=== PATIENT | male | born 1950 | race Caucasian/White ===

== ENCOUNTER → 2019-09-27 | Outpatient (CLI) | payer BC ==
--- NOTE | 2019-09-27 15:50 | Diagnostic Imaging Report ---
PROCEDURE: US right lower extremity venous. TECHNIQUE: Multiple real-time grayscale images were obtained over the right lower extremity in various projections. Additional spectral analysis and color Doppler duplex images were also obtained. INDICATION: Right lower extremity pain and swelling. FINDINGS: There is no evidence of right lower extremity DVT. Right lower extremity deep venous system shows normal compressibility with normal response to augmentation and Valsalva. No fluid collection is seen. IMPRESSION: No evidence of right lower extremity DVT. Dictated by: Dictated on workstation # [id number]
== END ==
LOC: RAD 14:43
PROVIDERS: ATTEND Nurse Practitioner Family
DX: R60.0 Localized edema (principal)

== ENCOUNTER 2019-10-03 09:55 | Outpatient (CLI) | payer BC ==
[~2019-10-03] VITALS: Ht 180.3 cm; Wt 73.6 kg
== END 2019-10-03 13:37 | disposition home or self-care (01) ==
LOC: PREOP 09:55
PROVIDERS: ATTEND Surgery
DX: Z01.818 Encounter for other preprocedural examination (principal)

== ENCOUNTER 2019-10-04 13:24 | Day surgery (SDC) | payer BC ==
--- NOTE | 2019-10-03 10:35 | HISTORY AND PHYSICAL ---
DATE OF SERVICE: PROCEDURE DATE: 10/04/2019. ATTENDING PHYSICIAN: Dr. Carmona. HISTORY OF PRESENT ILLNESS: The patient is a 69-year-old male who was referred over to us in need of a screening colonoscopy. The patient reports he has never had one done before at this point in his life. He denies any blood in the stool as well as no family history of colon cancer. He denies any diarrhea or constipation or any abdominal pain. PAST MEDICAL HISTORY: None. PAST SURGICAL HISTORY: Left arm ORIF in 1979, repair of dislocated shoulder in 1979. ALLERGIES: No known drug allergies. MEDICATIONS: None. SOCIAL HISTORY: Positive for smoke 1 pack per day for 30 years. Social alcohol. FAMILY HISTORY: Mother had diabetes and abdominal aortic aneurysm. Sister, ovarian cancer. VITAL SIGNS: Blood pressure is 140/70. Current weight is 164.2, 5 feet 11 inches. REVIEW OF SYSTEMS: Well-nourished male in no acute distress. He is not experiencing any shortness of breath or difficulty breathing. No chest pain, palpitations or diaphoresis. No nausea, vomiting or abdominal pain. No diarrhea or constipation. No red blood per rectum. No dark tarry stools. No fever or chills. No recent inadvertent weight loss. All other review of systems negative. PHYSICAL EXAMINATION: CHEST: Scattered rales, rhonchi bilaterally. HEART: Regular, no murmurs. EXTREMITIES: No lower extremity edema. Negative Homans sign. HEENT: No scleral icterus. No cervical lymphadenopathy. ABDOMEN: Soft, nontender, nondistended. SKIN: Warm, dry and pink. NEUROLOGIC: Awake, alert and oriented x3. ASSESSMENT AND PLAN: A 69-year-old male who is in need of a screening colonoscopy. The risks and benefits of the procedure as well as the procedure and wound care instructions were explained to the patient. The patient verbalized understanding of instructions and agrees to proceed as planned. At this time, we will proceed with scheduling the patient for a screening colonoscopy. Job ID: [id number] DocumentID: [id number] Dictated Date: 10/03/2019 09:15:30 Animal Eviscerator Date: 10/03/2019 10:34:48 Dictated By: BILLIE RIOS APRN
[2019-10-04] VITALS (14 sets, daily range): BP systolic 60–160; BP diastolic 63–94
[~2019-10-04] VITALS: Ht 180.3 cm; Wt 73.6 kg
[2019-10-04] MEDS ORDERED: NS IV 500 ML 500 ML ONE (13:28)
[2019-10-04] MEDS ORDERED: NS IV 500 ML 500 ML IV PRN (13:31)
[2019-10-04] MEDS ORDERED: fentaNYL INJECTION 100 MCG/2 ML AMP IVP ONE (13:45)
[2019-10-04] MEDS ORDERED: LIDOCAINE JELLY 2% 6 ML SYRINGE MM PRN (13:45)
[2019-10-04] MEDS ORDERED: fentaNYL INJECTION 100 MCG/2 ML AMP ONE ×2 (15:36)
[2019-10-04] MEDS ORDERED: LIDOCAINE JELLY 2% 6 ML SYRINGE ONE (15:36)
[2019-10-04] MEDS ORDERED: MIDAZOLAM 5 MG/5 ML (VERSED) VIAL ONE ×2 (15:37)
--- NOTE | 2019-10-04 15:46 | Conscious Sedation/ASA ---
Conscious Sedation Pre-Proced Time 15:30 ASA Score 2 For ASA 3 and 4: Consider anesthesia and medical clearance. Also, for patients with a history of failed moderate sedation consider anesthesia. Airway Lungs Heart ASA score ASA 1: a normal healthy patient ASA 2: a patient with a mild systemic disease (mid diabetes, controlled hypertension, obesity ASA 3: a patient with a severe systemic disease that limits activity (angina, COPD, prior Myocardial infarction) ASA 4: a patient with an incapacitating disease that is a constant threat to life (CHF, renal failure) ASA 5: a moribund patient not expected to survive 24 hrs. (ruptured aneurysm) ASA 6: a declared brain- patient whose organs are being harvested. For emergent operations, add the letter E after the classification Mallampati Classification Grade 2 Sedation Plan Analgesia, Amnesia, Plan communicated to team members, Discussed options with patient/fam, Discussed risks with patient/fam The patient is an appropriate candidate to undergo the planned procedure, sedation, and anesthesia. The patient immediately re-assessed prior to indication. PHOENIX ROWE MD Oct 04, 2019 15:46 POS
--- NOTE | 2019-10-04 15:47 | Progress Note-Pre Operative ---
Pre-Operative Progress Note H&P Reviewed The H&P was reviewed, patient examined and no changes noted. Date Seen by Provider: Oct 04, 2019 Time Seen by Provider: 15:30 Date H&P Reviewed: Oct 04, 2019 Time H&P Reviewed: 15:30 Pre-Operative Diagnosis: screening o PHOENIX ROWE MD Oct 04, 2019 15:47 POS
--- NOTE | 2019-10-04 15:48 | Discharge Inst-Surgical ---
D/C Lap Instructions-[facility] Follow Up Activity as tolerated High Fiber Diet 25g or more per day Avoid Alcohol, Caffeine, Spicy [place] and Acid foods. Drink 64 fluid oz or more of fluids per day. Symptoms to Report: Fever over 101 degree F, Nausea/Vomiting If any problems/questions: Contact your physician or go to Emergency Room PHOENIX ROWE MD Oct 04, 2019 15:48 POS
[2019-10-04] MEDS: MIDAZOLAM 5 MG/5 ML (VERSED) VIAL IV PRN ×3 (15:50→15:57)
[2019-10-04] MEDS ORDERED: ONDANSETRON 4 MG (ZOFRAN) ORAL DISSOLVE TAB PO PRN (16:00)
[2019-10-04] MEDS ORDERED: morphine INJ 10 MG/ML 1ML (SYR OR VIAL) IVP PRN ×2 (16:00)
[2019-10-04] MEDS ORDERED: ACETAMINOPHEN 325 MG TABLET PO PRN (16:00)
[2019-10-04] MEDS ORDERED: HYDROcodone/APAP 5 MG/325 MG (LORTAB) TAB PO PRN (16:00)
--- NOTE | 2019-10-04 16:20 | Progress Note-Post Operative ---
Post-Operative Progess Note Surgeon (s)/Teacher Education Instructor (s) Surgeon PHOENIX ROWE MD Teacher Education Instructor: none Pre-Operative Diagnosis screening colo Post-Operative Diagnosis mild chronic stage 2 ext and int hemorrrhoids. Procedure & Operative Findings Date of Procedure 10/04/19 Procedure Performed/Findings colonoscopy Anesthesia Type cs Estimated Blood Loss Estimated blood loss (mL): minimal Specimens/Packing Specimens Removed none PHOENIX ROWE MD Oct 04, 2019 16:20 POS
--- NOTE | 2019-10-04 20:30 | OPERATIVE REPORT ---
DATE OF SERVICE: 10/04/2019 ATTENDING PRIMARY CARE PHYSICIAN: Juan Carmona MD PREOPERATIVE DIAGNOSIS: Screening colonoscopy. POSTOPERATIVE DIAGNOSIS: Mild chronic stage II external and internal hemorrhoids. Remainder of the rectum and colon were normal. PROCEDURE: Colonoscopy. SURGEON: Phoenix Rowe MD ANESTHESIA: Conscious sedation. ESTIMATED BLOOD LOSS: Minimal. FINDINGS: Mild chronic stage II external and internal hemorrhoids, rectum and colon were normal. There were no polyps or any neoplasms identified. DISPOSITION: The patient tolerated the procedure well. INDICATIONS: The patient is a 69-year-old male referred over to us for screening colonoscopy. He has not had a colonoscopy up to this point in his life. He does not report any major issues with diarrhea nor constipation as well as no red blood per rectum nor any dark tarry stools. He also does not report any family history of colon cancer. DESCRIPTION OF PROCEDURE: The patient was brought to the endoscopy suite, laid in left lateral decubitus position. After adequate IV pain and sedative medications and conscious sedation anesthesia, digital rectal examination was performed. Mild chronic stage II external and internal hemorrhoids were identified, which were not actively edematous nor inflamed and no bleeding. Normal sphincter tone was felt and there were no palpable masses. The endoscope was then intubated to the anus, rectum and gently insufflated. The endoscope was then advanced to the valves of Curtis of the rectum with no polyps or any neoplasms identified. Through the sigmoid colon, no diverticulosis identified. The endoscope was then advanced to the remainder of the descending, transverse and ascending colon to the cecum. These segments were normal. There were no polyps or any neoplasms identified throughout the colon or rectum. The endoscope was then slowly withdrawn while taking a second look and suctioning of residual air with no additional findings. The patient tolerated the procedure well. We will recommend medical management with a high-fiber diet with 30 grams of fiber daily as well as significant amounts of water to promote soft stools on a daily basis. If he is asymptomatic, he does not need another colonoscopy for another 10 years. Job ID: [id number] DocumentID: [id number] Dictated Date: 10/04/2019 16:13:14 [employer] Advanced Operator Maintainer Date: 10/04/2019 20:29:14 Dictated By: PHOENIX ROWE MD
== END 2019-10-04 16:50 | disposition home or self-care (01) ==
LOC: ENDO 13:24
PROVIDERS: ATTEND Surgery
DX: Z12.11 Encounter for screening for malignant neoplasm of colon (principal); K64.1 Second degree hemorrhoids; F17.210 Nicotine dependence, cigarettes, uncomplicated

== ENCOUNTER → 2019-11-20 | Outpatient (CLI) | payer BC ==
[~2019-11-20] VITALS: Ht 180 cm; Wt 75.0 kg
[~2019-11-20] MED LIST: AMLO5TAB9 PO; ASPI-999 PO; ATOR80TA76 PO; CATHETER FLUSH 10 ML SYR IV PRN; CLOP75TA69 PO; REGADENOSON 0.4 MG/5 ML SYR (LEXISCAN) IV ONE
[2019-11-20 09:16] VITALS: BP 137/89
[2019-11-20 09:20] VITALS: BP 119/85
--- NOTE | 2019-11-20 12:58 | STRESS TEST ---
DATE OF SERVICE: 11/20/2019 LEXISCAN MYOVIEW STRESS TEST REFERRING PHYSICIAN: Dr. Carmona. Baseline heart rate is 66. Baseline blood pressure 141/96. Baseline EKG is sinus rhythm with no ischemic changes. In summary, the patient was injected with 10.81 mCi of technetium-99 Myoview and the resting images were obtained. Then, the patient received 0.4 mg of Lexiscan followed by 30.8 mCi of technetium-99 Myoview. Throughout the test, there were no EKG changes. The resting and stress images were reviewed and compared in the short axis, horizontal long axis, and vertical long axis views. Review of the images showed diaphragmatic attenuation with typical male pattern. No significant ischemia or infarction was seen. SSS is 0. TID value 0.98. On the gated images, the left ventricle appeared to be normal size with normal contractility. Calculated ejection fraction is 53%. CONCLUSION: 1. The patient tolerated Lexiscan well. 2. No ischemia or infarction on SPECT images. 3. Normal left ventricular size and systolic function. Calculated ejection fraction is 53%. Job ID: [id number] DocumentID: [id number] Dictated Date: 11/20/2019 11:57:08 Lift Builder Whole Date: 11/20/2019 12:57:21 Dictated By: MISAEL ROSE MD
== END ==
LOC: CARD 06:31
PROVIDERS: ATTEND Internal Medicine Cardiovascular Disease
DX: I10 Essential (primary) hypertension (principal); I73.9 Peripheral vascular disease, unspecified; I99.8 Other disorder of circulatory system; Z72.0 Tobacco use
CPT/HCPCS: 78452; 93017

== ENCOUNTER → 2019-11-30 | Outpatient (CLI) | payer BC ==
[~2019-11-30] MED LIST changes: -CATHETER FLUSH 10 ML SYR IV PRN; -REGADENOSON 0.4 MG/5 ML SYR (LEXISCAN) IV ONE
== END ==
LOC: CARD 10:13
PROVIDERS: ATTEND Internal Medicine Cardiovascular Disease
DX: I10 Essential (primary) hypertension (principal); I73.9 Peripheral vascular disease, unspecified; I99.8 Other disorder of circulatory system; Z72.0 Tobacco use
CPT/HCPCS: 93306

== ENCOUNTER → 2021-01-14 | Outpatient (CLI) | payer BC, MEDICARE ==
[~2021-01-14] MED LIST changes: +AMLO-250 PO; -AMLO5TAB9 PO
--- NOTE | 2021-01-14 14:02 | Diagnostic Imaging Report ---
EXAMINATION: CT Chest without contrast (lung screening). TECHNIQUE: Multiple contiguous axial images were obtained through the chest without the use of intravenous contrast according to lung cancer screening protocol. All CT scans use one or more of the following dose optimizing techniques: automated exposure control, MA and/or KvP adjustment based on a patient size and exam type, or iterative reconstruction. HISTORY: 30 pack year history of smoking. COMPARISON: None available. FINDINGS: There is no edema or pneumonia. No pleural effusion. No pneumothorax. No suspicious nodules. There is mild dependent atelectasis. There is no axillary or supraclavicular lymphadenopathy. Mildly enlarged mediastinal lymph nodes are likely reactive. Heart size is normal. There are mild coronary artery calcifications. No pericardial effusion. Aorta is normal in caliber. Limited views of the upper abdomen show several cysts in the liver, they are too small to characterize. Liver lesions are likely cysts as well. There are cysts in the right kidney. There are no suspicious osseous lesions. IMPRESSION: 1. No suspicious pulmonary nodules. LUNG-RADS CATEGORY: 1 MODIFIER: None. Dictated by: Dictated on workstation # [id number]
== END ==
LOC: RAD 12:10
PROVIDERS: ATTEND Nurse Practitioner
DX: Z12.2 Encounter for screening for malignant neoplasm of respiratory organs (principal); F17.210 Nicotine dependence, cigarettes, uncomplicated
CPT/HCPCS: 71271

== ENCOUNTER → 2021-01-28 | Outpatient (CLI) | payer MEDICARE, OTHER ==
[~2021-01-28] MED LIST changes: +RT-ALBUTEROL SULF 2.5 MG/3 ML PRE-MIX VIAL INH ONE
== END ==
LOC: RT 12:21
PROVIDERS: ATTEND Nurse Practitioner Family
DX: Z13.83 Encounter for screening for respiratory disorder NEC (principal); R06.00 Dyspnea, unspecified; F17.200 Nicotine dependence, unspecified, uncomplicated
CPT/HCPCS: 94060; 94726; 94729

== ENCOUNTER 2021-04-04 15:59 | Emergency (ER) | payer MEDICARE, OTHER ==
[~2021-04-04] VITALS: Ht 182 cm; Wt 75.0 kg
[~2021-04-04 15:59] MED LIST changes: -RT-ALBUTEROL SULF 2.5 MG/3 ML PRE-MIX VIAL INH ONE
[2021-04-04 16:37] LABS: BASOPHILS # (AUTO) 0.1 10^3/uL (0.0-0.1); BASOPHILS % (AUTO) 1 % (0-10); EOSINOPHILS % (AUTO) 1 % (0-10); HEMATOCRIT 51 % (40-54); HEMOGLOBIN 17.2 g/dL (13.3-17.7); LYMPHOCYTES # (AUTO) 1.1 10^3/uL (1.0-4.0); LYMPHOCYTES % (AUTO) 16 % (12-44); MEAN CORPUSCULAR HEMOGLOBIN 32 pg (25-34); MEAN CORPUSCULAR HGB CONC 34 g/dL (32-36); MEAN CORPUSCULAR VOLUME 94 fL (80-99); MEAN PLATELET VOLUME 9.4 fL (9.0-12.2); MONOCYTES # (AUTO) 0.6 10^3/uL (0.0-1.0); MONOCYTES % (AUTO) 9 % (0-12); NEUTROPHILS # (AUTO) 5.1 10^3/uL (1.8-7.8); NEUTROPHILS % (AUTO) 73 % (42-75); PLATELET COUNT 325 10^3/uL (130-400)
[2021-04-04] MEDS ORDERED: LIDOCAINE UROJET 2% GEL 10 ML PKG TOP ONE (16:45)
[2021-04-04 16:47] LABS: CHLORIDE 101 MMOL/L (98-107); POTASSIUM 4.6 MMOL/L (3.6-5.0); SODIUM 139 MMOL/L (135-145)
[2021-04-04 16:48] LABS: CALCIUM 9.8 MG/DL (8.5-10.1); GLUCOSE 98 MG/DL (70-105)
[2021-04-04 16:50] LABS: CARBON DIOXIDE 28 MMOL/L (21-32)
[2021-04-04 16:52] LABS: CREATININE SERUM 0.93 MG/DL (0.60-1.30); GFR ESTIMATED > 60
[2021-04-04 16:53] LABS: BUN/CREATININE RATIO 9
--- NOTE | 2021-04-04 17:01 | ED GU-Female ---
General Chief Complaint: - Urinary Stated Complaint: URINATING BLOOD Nursing Triage Note: PT PRESENTS TO ED FOR URINARY PROBLEMS. PT REPORTS AT 0230 THIS MORNING HE URINATED BLOOD, WAS SEEN AT THE CLINIC AND DIAGNOSED WITH A UTI. PT NOW REPORTS THAT HE IS UNABLE TO URINATE. Nursing Sepsis Screen: No Definite Risk Source: patient Exam Limitations: no limitations History of Present Illness Date Seen by Provider: April 04, 2021 Time Seen by Provider: 16:59 Initial Comments To ER with reports of hematuria onset 230 this morning. He feels like his bladder is full. He is only been able to dribble and have a small amount of bloody urine come out. Denies fevers or chills. He is a smoker. He saw [facility] and was told he might have a urinary tract infection and was given Levaquin. He comes in now with inability to urinate. Timing/Duration: constant, getting worse Severity/Quality: moderate Location: suprapubic Radiation: none Activities at Onset: none Prior Genitourinary Problems: none Allergies and Home Medications Allergies Coded Allergies: No Known Drug Allergies (Verified , 10/04/19) Home Medications Amlodipine Besylate 5 Mg Tablet, 5 MG PO DAILY, (Reported) Clopidogrel Bisulfate 75 Mg Tablet, 75 MG PO DAILY, (Reported) Tamsulosin HCl 0.4 Mg Cap, 0.4 MG PO DAILY Prescribed by: BLAIR LAM on 04/04/21 2124 Patient Home Medication List Home Medication List Reviewed: Yes Review of Systems Review of Systems Constitutional: see HPI EENTM: see HPI Respiratory: no symptoms reported Cardiovascular: no symptoms reported Genitourinary: see HPI, hematuria Musculoskeletal: no symptoms reported Skin: no symptoms reported Psychiatric/Neurological: No Symptoms Reported Endocrine: No Symptoms Reported Past Wsnwguu-Sizoxa-Tnabgl Hx Patient Social History Type Used: Cigarettes 2nd Hand Smoke Exposure: Yes Recent Infectious Disease Expo: No Recent Hopitalizations: No Immunizations Up To Date Date of Influenza Vaccine: Oct 10, 2019 Seasonal Allergies Seasonal Allergies: No Past Medical History Surgeries: Yes (L shoulder and R index finger reattached, L arm fx) Respiratory: No COPD Currently Using CPAP: No Currently Using BIPAP: No Cardiac: No Neurological: No Genitourinary: No Gastrointestinal: No Musculoskeletal: No Endocrine: No HEENT: No Cancer: No Did You Recieve Any Treatments: No Psychosocial: No Integumentary: No Blood Disorders: No Adverse Reaction/Blood Tranf: No Physical Exam Vital Signs Vital Signs - First Documented 04/04/21 16:05 Temp 36.4 Pulse 92 Resp 18 B/P (MAP) 115/80 (92) Pulse Ox 98 O2 Delivery Room Air Capillary Refill : Less Than 3 Seconds Height, Weight, BMI Height: '" Weight: lbs. oz. kg; 22.00 BMI Method: General Appearance: WD/WN, no apparent distress Neck: non-tender, full range of motion Respiratory: normal breath sounds, no respiratory distress, no accessory muscle use Gastrointestinal: normal bowel sounds, non tender, soft Extremities: normal range of motion, non-tender Neurologic/Psychiatric: alert, normal mood/affect, oriented x 3 Skin: normal color, warm/dry Progress/Results/Core Measures Suspected Sepsis Recent Fever Within 48 Hours: No Infection Criteria Present: None New/Unexplained Altered Menta: No Sepsis Screen: No Definite Risk SIRS Temperature: Pulse: 92 Respiratory Rate: 18 Laboratory Tests 04/04/21 16:32: White Blood Count 7.0 Blood Pressure 115 /80 Mean: 92 Laboratory Tests 04/04/21 16:32: Creatinine 0.93, Platelet Count 325 Results/Orders Lab Results Laboratory Tests Test 04/04/21 16:32 04/04/21 17:25 Range/Units White Blood Count 7.0 4.3-11.0 10^3/uL Red Blood Count 5.43 4.30-5.52 10^6/uL Hemoglobin 17.2 13.3-17.7 g/dL Hematocrit 51 40-54 % Mean Corpuscular Volume 94 80-99 fL Mean Corpuscular Hemoglobin 32 25-34 pg Mean Corpuscular Hemoglobin Concent 34 32-36 g/dL Red Cell Distribution Width 13.5 10.0-14.5 % Platelet Count 325 130-400 10^3/uL Mean Platelet Volume 9.4 9.0-12.2 fL Immature Granulocyte % (Auto) 0 % Neutrophils (%) (Auto) 73 42-75 % Lymphocytes (%) (Auto) 16 12-44 % Monocytes (%) (Auto) 9 0-12 % Eosinophils (%) (Auto) 1 0-10 % Basophils (%) (Auto) 1 0-10 % Neutrophils # (Auto) 5.1 1.8-7.8 10^3/uL Lymphocytes # (Auto) 1.1 1.0-4.0 10^3/uL Monocytes # (Auto) 0.6 0.0-1.0 10^3/uL Eosinophils # (Auto) 0.0 0.0-0.3 10^3/uL Basophils # (Auto) 0.1 0.0-0.1 10^3/uL Immature Granulocyte # (Auto) 0.0 0.0-0.1 10^3/uL Sodium Level 139 135-145 MMOL/L Potassium Level 4.6 3.6-5.0 MMOL/L Chloride Level 101 98-107 MMOL/L Carbon Dioxide Level 28 21-32 MMOL/L Anion Gap 10 5-14 MMOL/L Blood Urea Nitrogen 8 7-18 MG/DL Creatinine 0.93 0.60-1.30 MG/DL Estimat Glomerular Filtration Rate > 60 BUN/Creatinine Ratio 9 Glucose Level 98 70-105 MG/DL Calcium Level 9.8 8.5-10.1 MG/DL Urine Color RED H Urine Clarity CLOUDY Urine pH 7.0 5-9 Urine Specific [employer] 1.010 L 1.016-1.022 Urine Protein 3+ H NEGATIVE Urine Glucose (UA) TRACE H NEGATIVE Urine Ketones 1+ H NEGATIVE Urine Nitrite POSITIVE H NEGATIVE Urine Bilirubin 1+ H NEGATIVE Urine Urobilinogen 4.0 < = 1.0 MG/DL Urine Leukocyte Esterase 2+ H NEGATIVE Urine RBC (Auto) 3+ H NEGATIVE Urine RBC TNTC H /HPF Urine WBC 0-2 /HPF Urine Crystals NONE /LPF Urine Bacteria NEGATIVE /HPF Urine Casts NONE /LPF Urine Mucus NEGATIVE /LPF Urine Culture Indicated NO My Orders Orders - BLAIR LAM APRN Cbc With Automated Diff (04/04/21 16:17) Basic Metabolic Panel (04/04/21 16:17) Ua Culture If Indicated (04/04/21 16:17) Ed Iv/Invasive Line Start (04/04/21 16:17) Lidocaine 2% (Urojet) (Xylocaine Urojet) (04/04/21 16:45) Ct Abdomen/Pelvis W (04/04/21 16:59) Iohexol Injection (Omnipaque 350 Mg/Ml 1 (04/04/21 17:15) Sodium Chloride Flush (Catheter Flush Sy (04/04/21 17:15) Ns (Ivpb) (Sodium Chloride 0.9% Ivpb Bag (04/04/21 17:15) Ceftriaxone For Iv Use (Rocephin For I (04/04/21 17:45) Medications Given in ED Current Medications Medications Dose Ordered Sig/Ludin Route Start Time Stop Time Status Last Admin Dose Admin Iohexol 100 ml ONCE ONCE IV 04/04/21 17:15 04/04/21 17:16 DC 04/04/21 17:18 96 ML Lidocaine HCl 10 ml ONCE ONCE TOP 04/04/21 16:45 04/04/21 16:46 DC 04/04/21 16:45 10 ML Sodium Chloride 10 ml NEEDED PRN IV 04/04/21 17:15 04/04/21 17:18 10 ML Sodium Chloride 100 ml ONCE ONCE IV 04/04/21 17:15 04/04/21 17:16 DC 04/04/21 17:18 80 ML Vital Signs/I&O 04/04/21 16:05 Temp 36.4 Pulse 92 Resp 18 B/P (MAP) 115/80 (92) Pulse Ox 98 O2 Delivery Room Air Capillary Refill : Less Than 3 Seconds Blood Pressure Mean: 92 Departure Communication (Admissions) I inserted a three-way 22 Uzbek Dubon catheter after using Urojet lidocaine to topically anesthetize the urethra. Immediate return of about 700 mL of bloody urine but no clots. I did irrigate with a syringe a couple of times and only got bloody urine out without evidence of clot. 172-spoke with Dr. Simon, he like to have the patient call him on Wednesday. I will leave the Dubon catheter in place and attached to a leg bag. Dr. Simon recommends having the patient hold his Plavix unless the stent is recent. Impression Primary Impression: Gross hematuria Disposition: HOME, SELF-CARE Condition: Stable Departure-Patient Inst. Decision time for Depature: 17:30 Referrals: [facility] (PCP) Primary Care Physician EFRAÍN LOTT APRN (Family) Primary Care Physician DAYRON SIMON MD Patient Instructions: Blood in the Urine (Hematuria) in Adults Add. Discharge Instructions: 1. Call Dr. Simon on Wednesday to make an appointment to be seen. Take medication as directed including the antibiotics prescribed earlier today at [facility]. Return to ER for any worsening. All discharge instructions reviewed with patient and/or family. Voiced understanding. Scripts Tamsulosin HCl (Flomax) 0.4 Mg Cap 0.4 MG PO DAILY, #10 CAP Prov: BLAIR LAM APRN 04/04/21 Copy Copies To 1: DAYRON SIMON MD, PETER J APRN April 04, 2021 17:01
[2021-04-04] MEDS ORDERED: NS 100 ML (IVPB) BAG IV ONE (17:15)
[2021-04-04] MEDS ORDERED: IOHEXOL 350 MG/ML 100 ML (OMNIPAQUE 350) VIAL IV ONE (17:15)
[2021-04-04] MEDS ORDERED: CATHETER FLUSH 10 ML SYR IV PRN (17:15)
[2021-04-04 17:30] LABS: CLARITY,URINE CLOUDY; COLOR,URINE RED; GLUCOSE, URINE (UA) TRACE (NEGATIVE); KETONES,URINE 1+ (NEGATIVE); LEUKOCYTE ESTERASE ,URINE 2+ (NEGATIVE); NITRITE,URINE POSITIVE (NEGATIVE); PROTEIN,URINE 3+ (NEGATIVE)
--- NOTE | 2021-04-04 17:31 | Diagnostic Imaging Report ---
CT ABDOMEN/PELVIS W TECHNIQUE: Multiple contiguous axial images were obtained through the abdomen and pelvis after administration of intravenous contrast. All CT scans use one or more of the following dose optimizing techniques: automated exposure control, MA and/or KvP adjustment based on patient size and exam type or iterative reconstruction. INDICATION: Hematuria COMPARISON: None available. FINDINGS: Lower chest: Mild emphysema in the lung bases. Additionally, there are some scattered areas of subsegmental atelectasis. No pericardial or pleural effusion. Peritoneum: No free intraperitoneal air or fluid. Liver and biliary system: There are a few scattered hypodensities throughout the liver which are indeterminate on this exam, but highly likely cysts. The gallbladder is normal. No biliary duct dilation. Spleen and Pancreas: Spleen is normal. The pancreas enhances normally without mass lesion or peripancreatic inflammatory changes. Adrenals: Normal. tract: The kidneys enhance normally without suspicious mass or obstruction. There are 2 adjacent partially exophytic cysts in the upper pole of the left kidney with a combination of these cysts measuring 4.8 x 2.2 cm. No renal or ureteral stones. Urinary bladder is decompressed by Dubon catheter, and therefore assessment for bladder wall pathology is suboptimal. The prostate is mildly enlarged without features of abscess GI tract: Stomach is partially filled with fluid and there is no wall thickening. No bowel obstruction. No pericolonic inflammatory changes. Normal appendix. Vasculature and Lymph nodes: Normal caliber aorta with extensive atherosclerotic plaquing. There is a patent stent within the right common iliac artery No abdominal or pelvic lymphadenopathy. Musculoskeletal: Sclerotic lesion within the S2 vertebral body is indeterminate in nature. IMPRESSION: 1. Assessment for bladder pathology is very limited as the urinary bladder is decompressed by Dubon catheter. No urinary tract calculi or features of renal neoplasm. 2. Indeterminate sclerotic focus within the S2 vertebral body. While this could represent a bone island, blastic metastasis from prostate cancer could give this appearance. Therefore, follow-up nonemergent nuclear medicine whole-body bone scan is advised in the near future. Dictated by: Dictated on workstation # [id number]
[2021-04-04 17:38] LABS: BACTERIA,URINE NEGATIVE /HPF; BILIRUBIN,URINE 1+ (NEGATIVE); RBC,URINE TNTC /HPF; WBC,URINE 0-2 /HPF
[2021-04-04] MEDS ORDERED: TMSL.4C PO (17:43)
[2021-04-04] MEDS ORDERED: cefTRIAXone FOR IV USE 1,000 MG in WATER (STERILE) FOR INJECTION 10 ML IV ONE (17:45)
[2021-04-04 18:13] VITALS: BP 128/79
[2021-04-05] MEDS ORDERED: TMSL.4C PO (18:31)
== END 2021-04-04 18:11 | disposition home or self-care (01) ==
LOC: EDUNIT# 15:59 → ER 16:00
DX: R31.0 Gross hematuria (principal); F17.200 Nicotine dependence, unspecified, uncomplicated
CPT/HCPCS: 36415; 74177; 80048; 81000; 85025

== ENCOUNTER 2021-04-05 17:55 | Emergency (ER) | payer MEDICARE, OTHER ==
[~2021-04-05] VITALS: Ht 182 cm; Wt 75.0 kg
[~2021-04-05 17:55] MED LIST changes: +TMSL.4C PO
--- NOTE | 2021-04-05 18:14 | ED GU-Male ---
General Chief Complaint: - Urinary Stated Complaint: CATHETER ISSUES Nursing Triage Note: Patient ambulatory to ER with c/o unable to produce urine in catheter. pt was seen in ER yesterday and was unable to urinate and had blood present. A catheter was placed yesterday and irrigated and produced urine without difficulty. Pt states he has not produced urine in his bag since around noon. Source: patient, old records History of Present Illness Date Seen by Provider: April 05, 2021 Time Seen by Provider: 18:00 Initial Comments PT ARRIVES VIA POV FROM HOME PT SEEN HERE LAST NIGHT FOR URINARY RETENTION AND GROSS HEMATURIA, AND 3 WAY VARMA AND BLADDER IRRIGATION DONE IN ER WITH GOOD RESULTS. PT HAD BEEN SEEN EA DEANDRE YESTERDAY AT [facility] FOR THIS PROBLEM AND WAS DX WITH UTI AND PLACED ON LEVAQUIN IN ER LAST NIGHT, LAB AND CT WERE DONE. 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 SIMON NEXT WEEK PT STATES HE WAS DOING FINE UNTIL NOON TODAY--NOW WITH NO URINE OUTPUT SINCE NOON AND LOWER ABDOMINAL / BLADDER PAIN SINCE THEN HAS NOT BEEN DRINKING ANY LIQUIDS SINCE NOON, DUE TO THIS C/O NAUSEA WITH THE PAIN, NO VOMITING NO FEVER NO HISTORY OF SIMILAR PT IS ON PLAVIX FOR PAD WITH STENT IN RIGHT LEG--PT STATES HE HAS HELD IT INSTRUCTED PCP: [facility] Allergies and Home Medications Allergies Coded Allergies: No Known Drug Allergies (Verified , 10/04/19) Home Medications Amlodipine Besylate 5 Mg Tablet, 5 MG PO DAILY, (Reported) Clopidogrel Bisulfate 75 Mg Tablet, 75 MG PO DAILY, (Reported) Tamsulosin HCl 0.4 Mg Cap, 0.4 MG PO DAILY Prescribed by: BLAIR LAM on 04/04/21 174 Tamsulosin HCl 0.4 Mg Cap, 0.4 MG PO DAILY Prescribed by: MIKAL CHICAS on 04/05/21 1831 Patient Home Medication List Home Medication List Reviewed: Yes Review of Systems Review of Systems Constitutional: no symptoms reported; No chills, No fever Respiratory: no symptoms reported Cardiovascular: no symptoms reported Gastrointestinal: abdominal pain, nausea; No vomiting Genitourinary: see HPI, hematuria Musculoskeletal: no symptoms reported; No back pain Skin: no symptoms reported Psychiatric/Neurological: No Symptoms Reported Endocrine: No Symptoms Reported Hematologic/Lymphatic: No Symptoms Reported Past Rqifilz-[id number]-Gvjilx Hx Past Med/Social Hx: Reviewed and Corrections made Patient Social History Smoking Status: Current Everyday Smoker (1/2 -1 PPD) Type Used: Cigarettes 2nd Hand Smoke Exposure: Yes Recent Infectious Disease Expo: No Recent Hopitalizations: No Immunizations Up To Date Date of Influenza Vaccine: Oct 10, 2019 Seasonal Allergies Seasonal Allergies: No Past Medical History Surgeries: Yes (L shoulder; R index finger reattached; L arm fx;STENT R LEG-SFA & POPLIT) Orthopedic, Vascular Surgery Respiratory: Yes (ACTIVE SMOKER) COPD Currently Using CPAP: No Currently Using BIPAP: No Cardiac: Yes (STENT R SFA & POPLITEAL ) Hypertension, Peripheral Vascular Neurological: No Genitourinary: No Gastrointestinal: Yes Hemorrhoids Musculoskeletal: No Endocrine: No HEENT: No Cancer: No Did You Recieve Any Treatments: No Psychosocial: No Integumentary: No Blood Disorders: No Adverse Reaction/Blood Tranf: No Family Medical History PAST SUGICAL HISTORY: - COLONOSCOPY 09/[address] ROWE--HEMORRHOIDS NOTED - PERIPHERAL ANGIOGRAM WITH STENT TO RIGHT SFA AND PROXIMAL POPLITEAL ARTERY 11/09/[address] BLANCAS -LEFT ARM FRACTURE/REPAIR -LEFT SHOULDER SURGERY -RIGHT INDEX FINGER RE-ATTACHED Physical Exam Vital Signs Vital Signs - First Documented 04/05/21 17:59 Temp 33.9 Pulse 107 Resp 18 B/P (MAP) 151/93 (112) Pulse Ox 97 O2 Delivery Room Air Capillary Refill : Less Than 3 Seconds Height, Weight, BMI Height: '" Weight: lbs. oz. kg; 22.00 BMI Method: General Appearance: WD/WN, no apparent distress Cardiovascular: regular rate, rhythm Respiratory: normal breath sounds Gastrointestinal: soft, tenderness (SUPRAPUBIC/LOWER ABDOMINAL TENDERNESS WITH DISTENDED BLADDER. ) Male: other (CATHETER IN PLACE WITH SMALL AMOUNT OF GROSSLY BLOODY URINE IN BAG) Extremities: non-tender Neurologic/Psychiatric: no motor/sensory deficits, alert, normal mood/affect, oriented x 3 Skin: normal color, warm/dry Progress/Results/Core Measures Suspected Sepsis Recent Fever Within 48 Hours: No Infection Criteria Present: None New/Unexplained Altered Menta: No Sepsis Screen: No Definite Risk SIRS Temperature: Pulse: 107 Respiratory Rate: 18 Blood Pressure 151 /93 Mean: 112 Results/Orders My Orders Orders - MIKAL CHICAS DO Continuous Bladder Irrigation (04/05/21 18:08) Tamsulosin Capsule (Flomax Capsule) (04/05/21 18:30) Vital Signs/I&O 04/05/21 17:59 Temp 33.9 Pulse 107 Resp 18 B/P (MAP) 151/93 (112) Pulse Ox 97 O2 Delivery Room Air Capillary Refill : Less Than 3 Seconds Blood Pressure Mean: 112 Progress Note : Progress Note BLADDER IRRIGATION DONE VIA 3 WAY CATHETER WITH GOOD RESULTS--SOME SMALL CLOTS IRRIGATED AND URINE IS NOW FLOWING FREELY AND IS BECOMING MUCH CLEARER AND IS PALE YELLOW AT DISMISSAL, WITH MUCH IMPROVEMENT IN BLADDER DISCOMFORT. 600 ML IN / 1000 ML OUT GAVE DOSE OF FLOMAX WELL Departure Impression Primary Impression: URINARY RETENTION WITH GROSS HEMATURIA Additional Impression: UTI (urinary tract infection) Disposition: HOME, SELF-CARE Condition: Improved Departure-Patient Inst. Decision time for Depature: 18:30 Referrals: [facility] [place] Primary Care Physician EFRAÍN LOTT APRN (Family) Primary Care Physician DAYRON SIMON MD Patient Instructions: Blood in the Urine (Hematuria), Adult (DC), How to Care for Your Varma Catheter, Male, Urinary Retention (DC), Urinary Tract Infection, Adult (DC) Add. Discharge Instructions: CONTINUE ANTIBIOTICS PRESCRIBED TYLENOL NEEDED FOR PAIN GET PRESCRIPTION FOR FLOMAX /TAMSULOSIN FILLED TOMORROW AND TAKE DAILY FOLLOW UP WITH DR. SIMON NEXT WEEK--CALL ON WEDNESDAY TO SCHEDULE APPOINTMENT RETURN TO ER IF SYMPTOMS RECUR All discharge instructions reviewed with patient and/or family. Voiced understanding. Scripts Tamsulosin HCl (Flomax) 0.4 Mg Cap 0.4 MG PO DAILY, #10 CAP Prov: MIKAL CHICAS DO 04/05/21 MIKAL CHICAS DO April 05, 2021 18:14
[2021-04-05] MEDS ORDERED: TMSL.4C PO (18:31)
[2021-04-05] MEDS: TAMSULOSIN 0.4 MG (FLOMAX) CAP PO SCH (18:38)
[2021-04-05 19:00] VITALS: BP 151/93
== END 2021-04-05 19:01 | disposition home or self-care (01) ==
LOC: EDUNIT# 17:55 → ER 17:57
DX: N39.0 Urinary tract infection, site not specified (principal); I10 Essential (primary) hypertension; J44.9 Chronic obstructive pulmonary disease, unspecified; F17.210 Nicotine dependence, cigarettes, uncomplicated; Z96.0 Presence of urogenital implants; Z79.899 Other long term (current) drug therapy
CPT/HCPCS: 99283

== ENCOUNTER → 2021-05-01 | Outpatient (CLI) | payer MEDICARE, OTHER ==
--- NOTE | 2021-05-01 19:33 | Diagnostic Imaging Report ---
Exam: Nuclear medicine bone scan, whole body. Date: May 01, 2021. Indication: 70-year-old male, sclerotic bone lesion. Evaluation for possible malignancy. Comparison: CT abdomen and pelvis April 04, 2021. CT chest January 14, 2021. Findings: 26.2 mCi of technetium labeled MDP radiotracer was administered. Delayed subsequent whole-body bone scan images were subsequently obtained. There is radiotracer uptake at the left proximal humerus. There is also a radiotracer avid focus involving the left side of the mid cervical spine. There is no identified radiotracer uptake to correlate with the sclerotic S2 lesion seen on CT abdomen and pelvis exam on April 04, 2021. Impression: 1. No radiotracer uptake to correlate with the S2 sclerotic lesion seen on recent CT to specifically suggest an osteoblastic bone metastasis. 2. Radiotracer uptake at the level of left proximal humerus which is nonspecific. There does appear to be advanced left glenohumeral arthritis and potentially a chronic left humerus deformity, partially imaged on January 14, 2021. Recommend correlation with current left shoulder radiographs and for focal symptoms. 3. Radiotracer uptake to the left of midline at the level of the mid cervical spine which is technically indeterminate although potentially degenerative related. Dictated by: Dictated on workstation # [id number]
== END ==
LOC: CARD 11:46
PROVIDERS: ATTEND Urology
DX: M89.9 Disorder of bone, unspecified (principal)
CPT/HCPCS: 78306; A9503